=== PATIENT | female | born 1955 | race Asian ===

== ENCOUNTER 2024-07-19 17:13 | Emergency (ER) | payer OTHER ==
[~2024-07-19] VITALS: Ht 139.7 cm; Wt 81.6 kg
[2024-07-19] MEDS ORDERED: GUAI400T93 PO (19:54)
[2024-07-19] MEDS ORDERED: BENZ-13 PO (19:54)
[2024-07-19] MEDS ORDERED: ALBU18HF2 INH (19:55)
[2024-07-19] MEDS ORDERED: FLUT15.89 BNOSTRILS (19:56)
[2024-07-19 20:35] VITALS: BP 140/60; TEMP 98.4; O2SAT 98
== END 2024-07-19 20:36 | disposition home or self-care (01) ==
LOC: ER 17:18
DX: J40 Bronchitis, not specified as acute or chronic (principal); R05.9 Cough, unspecified; I11.0 Hypertensive heart disease with heart failure; I50.9 Heart failure, unspecified; E11.9 Type 2 diabetes mellitus without complications; E78.5 Hyperlipidemia, unspecified
CPT/HCPCS: 71045-TC

== ENCOUNTER 2025-02-16 14:08 | Emergency (ER) | payer OTHER ==
[~2025-02-16] VITALS: Ht 139.7 cm; Wt 80.7 kg
[~2025-02-16 14:08] MED LIST: ALBU18HF2 INH; BENZ-13 PO; FLUT15.89 BNOSTRILS; GUAI400T93 PO
[2025-02-16 14:25] VITALS: TEMP 98.3
[2025-02-16] MEDS ORDERED: oxyCODONE/APAP (5/325 MG) 1 UDTAB TABLET ONE (15:13)
[2025-02-16] MEDS ORDERED: CYCLOBENZAPRINE 10 MG TABLET ONE (15:13)
[2025-02-16] MEDS: CYCLOBENZAPRINE 10 MG TABLET PO ONE (15:27)
[2025-02-16] MEDS: oxyCODONE/APAP (5/325 MG) 1 UDTAB TABLET PO ONE (15:28)
[2025-02-16] MEDS ORDERED: KETO10TA2 PO (17:25)
[2025-02-16 17:33] VITALS: BP 105/74; O2SAT 96
== END 2025-02-16 18:35 | disposition home or self-care (01) ==
LOC: ER 14:20
DX: M25.552 Pain in left hip (principal); M25.551 Pain in right hip; E11.9 Type 2 diabetes mellitus without complications; E78.5 Hyperlipidemia, unspecified; I10 Essential (primary) hypertension; G89.29 Other chronic pain; M19.90 Unspecified osteoarthritis, unspecified site; W01.0XXA Fall on same level from slipping, tripping and stumbling without subsequent striking against object, initial encounter; Y93.89 Activity, other specified; Y92.89 Other specified places as the place of occurrence of the external cause; Y99.8 Other external cause status